=== PATIENT | male | born 1955 | race Caucasian/White ===

== ENCOUNTER 2017-07-13 15:50 | Observation (INO) | payer OTHER ==
[~2017-07-13] VITALS: Ht 188 cm; Wt 91.0 kg
[2017-07-13 16:00] VITALS: BP 118/70; PULSE 72; RESP 20; TEMP 97.8; O2SAT 96
[2017-07-13 16:05] VITALS: BP_SYST 114; BP_SYST 118; BP_DIAS 64; BP_DIAS 70; PULSE 69; RESP 18; RESP 20; TEMP 97.8; O2SAT 96
[2017-07-13] MEDS ORDERED: MULTTAB67 PO (16:12)
[2017-07-13] MEDS ORDERED: LEVO100T5 PO (16:12)
--- NOTE | 2017-07-13 16:25 | PD ---
HPI Chief Complaint: Syncope/Near-Syncope Time Seen by Provider: 16:25 Travel History International Travel<30 days: No Contact w/Intl Traveler<30days: No Traveled to known affect area: No History of Present Illness HPI 61-year-old male with PMH of hypothyroidism presents to the ED via EMS for evaluation of syncopal episode just before arrival. The patient is stable on arrival but somewhat somnolent. The is at bedside and helps to provide the history. She states that they are here for [employer] from [place]. She states that they rode the motorcycle up to the [place] today. She states that they walked around for about an hour and had one beer. She states that they rode over to [address], which took ~45 mins, parked the bike and went to a bar. She states that they had one shot and a beer. She states that the patient began to complain of dizziness. She offered him her barstool and he sat down. She states that the patients eyes closed and he went limp and slumped over for ~45 seconds before the patient became responsive again. She states that the patient was able to drink a few sips of water. EMS gave 900mL NS en route. 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 states he just returned home last night. Patient states that he's been in his normal health recently with no somatic complaints. PFSH Past Medical History Medical other: Yes (HYPOTHYROID) Tetanus Vaccination: > 5 Years Social History Alcohol Use: Yes Tobacco Use: No Substance Use: No Allergies-Medications (Allergen,Severity, Reaction): Coded Allergies: codeine (Verified Allergy, Intermediate, Nausea/Vomiting, 07/13/17) Reported Meds & Prescriptions Reported Meds & Active Scripts Active Reported Multiple Vitamin 1 Tab 1 Tab PO DAILY Levothyroxine (Levothyroxine Sodium) 100 Mcg Tab 100 Mcg PO DAILY Review of Systems Except as stated in HPI: all other systems reviewed are Neg Physical Exam Narrative GENERAL: Well-nourished, well-developed white male in no acute distress. Somewhat somnolent but rouses easily to voice. SKIN: Focused skin assessment warm/dry. HEAD: Normocephalic. EYES: No scleral icterus. No injection or drainage. Pupils 3-4 mm, equal and reactive bilaterally. EOMI. NECK: Supple, trachea midline. No JVD or lymphadenopathy. CARDIOVASCULAR: Regular rate and rhythm without murmurs, gallops, or rubs. RESPIRATORY: Breath sounds clear and equal bilaterally. No accessory muscle use. GASTROINTESTINAL: Abdomen soft, non-tender, nondistended. Active bowel sounds. MUSCULOSKELETAL: No cyanosis, or edema. Homans sign negative bilaterally. NEUROLOGICAL: Awake and alert. Cranial nerves II through XII intact. Motor and sensory grossly within normal limits. Five out of 5 muscle strength in all muscle groups. Normal speech. BACK: Nontender without obvious deformity. No CVA tenderness. Data Data Last Documented VS Vital Signs Date Time Temp Pulse Resp B/P (MAP) Pulse Ox O2 Delivery O2 Flow Rate FiO2 07/13/17 16:37 20 96 Room Air 07/13/17 16:05 74 77 07/13/17 16:05 97.8 Orders Orders Electrocardiogram (07/13/17 16:24) Complete Blood Count With Diff (07/13/17 16:24) Comprehensive Metabolic Panel (07/13/17 16:24) Magnesium (Mg) (07/13/17 16:24) Ckmb (Isoenzyme) Profile (07/13/17 16:24) Troponin I (07/13/17 16:24) Act Partial Throm Time (Ptt) (07/13/17 16:24) Prothrombin Time / Inr (Pt) (07/13/17 16:24) Urinalysis - C+S If Indicated (07/13/17 16:24) Chest, Single Ap (07/13/17 16:24) Ecg Monitoring (07/13/17 16:24) Iv Access Insert/Monitor (07/13/17 16:24) Oximetry (07/13/17 16:24) Sodium Chloride 0.9% Flush (Ns Flush) (07/13/17 16:30) Ct Brain W/O Iv Contrast(Rout) (07/13/17 16:34) Drug Screen, Random Urine (07/13/17 16:34) Alcohol (Ethanol) (07/13/17 16:35) Thyroid Stimulating Hormone (07/13/17 16:35) Orthostatic Vital Signs (07/13/17 17:07) Sodium Chlor 0.9% 1000 Ml Inj (Ns 1000 M (07/13/17 18:00) Admit Order (Ed Use Only) (07/13/17 19:14) Labs Laboratory Tests Test 07/13/17 16:35 White Blood Count 10.6 TH/MM3 Red Blood Count 4.86 MIL/MM3 Hemoglobin 15.1 GM/DL Hematocrit 43.0 % Mean Corpuscular Volume 88.4 FL Mean Corpuscular Hemoglobin 31.1 PG Mean Corpuscular Hemoglobin Concent 35.1 % Red Cell Distribution Width 13.3 % Platelet Count 209 TH/MM3 Mean Platelet Volume 8.3 FL Neutrophils (%) (Auto) 81.9 % Lymphocytes (%) (Auto) 11.9 % Monocytes (%) (Auto) 5.2 % Eosinophils (%) (Auto) 0.6 % Basophils (%) (Auto) 0.4 % Neutrophils # (Auto) 8.7 TH/MM3 Lymphocytes # (Auto) 1.3 TH/MM3 Monocytes # (Auto) 0.5 TH/MM3 Eosinophils # (Auto) 0.1 TH/MM3 Basophils # (Auto) 0.0 TH/MM3 CBC Comment DIFF FINAL Differential Comment Prothrombin Time 11.3 SEC Prothromb Time International Ratio 1.0 RATIO Activated Partial Thromboplast Time 25.6 SEC Blood Urea Nitrogen 14 MG/DL Creatinine 1.44 MG/DL Random Glucose 113 MG/DL Total Protein 6.8 GM/DL Albumin 3.7 GM/DL Calcium Level 8.3 MG/DL Magnesium Level 1.9 MG/DL Alkaline Phosphatase 67 U/L Aspartate Amino Transf (AST/SGOT) 12 U/L Alanine Aminotransferase (ALT/SGPT) 20 U/L Total Bilirubin 0.7 MG/DL Sodium Level 141 MEQ/L Potassium Level 3.8 MEQ/L Chloride Level 109 MEQ/L Carbon Dioxide Level 21.6 MEQ/L Anion Gap 10 MEQ/L Estimat Glomerular Filtration Rate 50 ML/MIN Total Creatine Kinase 91 U/L Troponin I LESS THAN 0.02 NG/ML Thyroid Stimulating Hormone 3rd Gen 8.490 uIU/ML Ethyl Alcohol Level 18 MG/DL [facility] Medical Decision Making Medical Screen Exam Complete: Yes Emergency Medical Condition: Yes Differential Diagnosis Dehydration versus hypoglycemia versus metabolic derangement versus acute alcohol intoxication versus orthostatic hypotension versus hypothyroidism versus ICH versus other Narrative Course 61-year-old male presents to the ED via EMS after syncopal episode. is at bedside and helps to provide the history. States they were sitting at a bar, patient had only had one beer and one shot, became dizzy and then unresponsive for about 45 seconds. On exam the patient's somewhat somnolent, arouses easily to voice. Follows commands. No focal neuro deficits. Chest clear to auscultation bilaterally. Abdomen soft, nontender. [facility] EKG rate 70, sinus rhythm. NM interval 167. QRS 99, QTC 437 ms. Normal axis. No acute ST changes. Reviewed by . CXR: Minimal atelectasis, otherwise unremarkable. Cardiac enzymes negative 1. CBC: No concerning abnormalities Coags: INR 1.1 CMP: BUN 14, creatinine 1.44. Glucose 113. Calcium 8.3. TSH: 8.49 UA: Pending Alcohol: 18 Tox screen: pending Orthostatic vitals normal. Patient administered a liter normal saline. He'll be admitted to the medicine service for TIA workup. I spoke with the patient and his who are agreeable to admission. I spoke with Dr. Greenwood who agrees to accept the patient to the medicine service. Please see medicine notes for disposition. Shortly after admission the patient's called me into the room. She states that they had no resources here and would like to go home to seek further evaluation. I explained the risks of leaving without full evaluation to the patient and his , up to and including . They both acknowledge understanding of the risks but chose to leave AGAINST MEDICAL ADVICE. [facility] Point of Care Fecal Specimen Occult Blood: Negative Diagnosis Primary Impression: Syncope and collapse Referrals: [facility] Additional Instructions: Seek medical evaluation immediately upon return home. Disposition: 07 AGAINST MEDICAL ADVICE Condition: Stable Diane Cooney Jul 13, 2017 16:25
[2017-07-13] MEDS ORDERED: SODIUM CHLORIDE 0.9% FLUSH 10 ML FLUSH IVF PRN (16:30)
[2017-07-13 16:37] VITALS: RESP 20; O2SAT 96
[2017-07-13 17:20] LABS: AUTOMATED NEUTROPHIL # 8.7 TH/MM3 (1.8-7.7); BASOPHIL % 0.4 % (0.0-2.0); EOSINOPHIL # 0.1 TH/MM3 (0-0.4); EOSINOPHIL % 0.6 % (0.0-4.0); HEMO FLAGS DIFF FINAL; LYMPH % 11.9 % (9.0-44.0); LYMPHOCYTE # 1.3 TH/MM3 (1.0-4.8); MEAN CELL VOLUME 88.4 FL (80.0-100.0); MEAN CORPUSCULAR HEMOGLOBIN 31.1 PG (27.0-34.0); MEAN CORPUSCULAR HGB CONC 35.1 % (32.0-36.0); MONO % 5.2 % (0.0-8.0); NEUT % 81.9 % (16.0-70.0); PLATELET COUNT 209 TH/MM3 (150-450); RED BLOOD COUNT 4.86 MIL/MM3 (4.50-5.90); RED CELL DISTRIBUTION WIDTH 13.3 % (11.6-17.2); WHITE BLOOD COUNT 10.6 TH/MM3 (4.0-11.0)
[2017-07-13 17:23] LABS: ANION GAP 10 MEQ/L (5-15); AST (GOT) 12 U/L (15-37); BICARBONATE 21.6 MEQ/L (21.0-32.0); BLOOD UREA NITROGEN 14 MG/DL (7-18); CHLORIDE 109 MEQ/L (98-107); GLOMERULAR FILTRATION RATE 50 ML/MIN (>89); MAGNESIUM 1.9 MG/DL (1.5-2.5); POTASSIUM 3.8 MEQ/L (3.5-5.1); SODIUM (NA) 141 MEQ/L (136-145)
--- NOTE | 2017-07-13 17:24 | RADRPT ---
EXAM DATE/TIME: 07/13/2017 16:51 [facility] COMPARISON: No previous studies available for comparison. INDICATIONS : Syncope today. RADIATION DOSE: 56.35 CTDIvol (mGy) MEDICAL HISTORY : Hypothyroidism. SURGICAL HISTORY : None. ENCOUNTER: Initial ACUITY: 1 day PAIN SCALE: 0/10 LOCATION: Bilateral head TECHNIQUE: Multiple contiguous axial images were obtained of the head. Using automated exposure control and adj ustment of the mA and/or kV according to patient size, radiation dose was kept as low as reasonably a chievable to obtain optimal diagnostic quality images. DICOM format image data is available electro nically for review and comparison. FINDINGS: CEREBRUM: The ventricles are normal for age. No evidence of midline shift, mass lesion, hemorrhage or acute in farction. No extra-axial fluid collections are seen. POSTERIOR FOSSA: The cerebellum and brainstem are intact. The 4th ventricle is midline. The cerebellopontine angle i s unremarkable. EXTRACRANIAL: The visualized portion of the orbits is intact. SKULL: The calvaria is intact. No evidence of skull fracture. CONCLUSION: 1. No acute findings. Large cisterna magna, likely congenital variant. True Rae MD on July 13, 2017 at 17:21 Board Certified Radiologist. This report was verified electronically.
[2017-07-13 17:34] LABS: ALKALINE PHOSPHATASE 67 U/L (45-117); ALT (GPT) 20 U/L (12-78); TOTAL BILIRUBIN ADULT 0.7 MG/DL (0.2-1.0)
[2017-07-13 17:36] LABS: APTT (PATIENT) 25.6 SEC (24.3-30.1); PROTHROMBIN TIME - PATIENT 11.3 SEC (9.8-11.6)
--- NOTE | 2017-07-13 17:37 | RADRPT ---
EXAM DATE/TIME: 07/13/2017 17:13 [facility] COMPARISON: No previous studies available for comparison. INDICATIONS : Syncope. Patient passed out today. MEDICAL HISTORY : None. SURGICAL HISTORY : ORIF right shoulder. ENCOUNTER: Initial ACUITY: 1 day PAIN SCORE: Non-responsive. LOCATION: Bilateral chest FINDINGS: A single view of the chest demonstrates the lungs to be symmetrically aerated without evidence of mas s, infiltrate or effusion. Mild dependent atelectasis in the lungs. The cardiomediastinal contours a re unremarkable. Osseous structures are intact. CONCLUSION: 1. Minimal dependent atelectasis in the lungs. No effusions. No pneumothorax. True Rae MD on July 13, 2017 at 17:32 Board Certified Radiologist. This report was verified electronically.
[2017-07-13 17:44] LABS: ALCOHOL 18 MG/DL (0-5); CREATINE KINASE 91 U/L (39-308)
[2017-07-13] MEDS ORDERED: SODIUM CHLOR 0.9% 1000 ML INJ 1,000 ML IV ONE (18:00)
[2017-07-13 19:29] VITALS: BP 138/72
--- NOTE | 2017-07-14 13:35 | EKG ---
Date Performed: 07/13/2017 Time Performed: 16:18:19 PTAGE: 61 years EKG: Sinus rhythm PROBABLE INFERIOR MYOCARDIAL INFARCTION ABNORMAL ECG NO PREVIOUS TRACING DOCTOR: Pankaj Pandey Interpretating Date/Time 07/14/2017 13:34:59
== END 2017-07-13 19:27 | disposition left against medical advice (07) ==
LOC: NEPD 15:50 → NEDA 19:16
PROVIDERS: ADMIT Hospitalist; ATTEND Hospitalist
DX: R55 Syncope and collapse (principal); E03.9 Hypothyroidism, unspecified; R40.0 Somnolence; R42 Dizziness and giddiness; R94.31 Abnormal electrocardiogram [ECG] [EKG]
CPT/HCPCS: 70450; 71010; 80053; 80307; 82550; 83735; 84443; 84484; 85025; 85610; 85730; 93005; 99285; J7030